=== PATIENT | male | born 1990 | race Caucasian/White ===

== ENCOUNTER 2019-06-24 00:40 | Emergency (ER) | payer OTHER ==
[2019-06-24] MEDS ORDERED: HALOPERIDOL 5 MG/ML VIAL (J1630) IM STA (00:41)
[2019-06-24] MEDS ORDERED: diphenhydrAMINE INJ 50MG/ML VIAL (J1200) IM STA (00:41)
[2019-06-24] MEDS ORDERED: HALOPERIDOL 5 MG/ML VIAL (J1630) IM ONE (00:45)
[2019-06-24] MEDS ORDERED: diphenhydrAMINE INJ 50MG/ML VIAL (J1200) IM ONE (00:45)
[2019-06-24 01:56] LABS: AMPHETAMINES LEVEL URINE NEGATIVE (NEGATIVE); BARBITURATES URINE NEGATIVE (NEGATIVE); BENZODIAZEPINES URINE NEGATIVE (NEGATIVE); CANNABINOIDS URINE NEGATIVE (NEGATIVE); COCAINE METABOLITE URINE NEGATIVE (NEGATIVE); METHADONE URINE NEGATIVE (NEGATIVE); OPIATES URINE NEGATIVE (NEGATIVE); PHENCYCLIDINE URINE NEGATIVE (NEGATIVE)
[2019-06-24 01:57] LABS: HEMOGLOBIN 15.2 g/dl (13.5-17.5); MEAN CORPUSCULAR HEMOGLOBIN 30.5 pg (27.0-33.0); MEAN CORPUSCULAR HGB CONC 33.8 g/dl (32.0-36.5); MEAN CORPUSCULAR VOLUME 90.4 fl (80.0-96.0); PLATELET COUNT, AUTOMATED 235 10^3/uL (150-450); RED BLOOD COUNT 4.98 10^6/uL (4.30-6.10); WHITE BLOOD COUNT 8.5 10^3/uL (4.0-10.0)
[2019-06-24 02:05] LABS: ACETAMINOPHEN LEVEL < 2.0 UG/ML (10.0-30.0); ALBUMIN 3.8 GM/DL (3.2-5.2); ALT/SGPT 27 U/L (12-78); BILIRUBIN,DIRECT < 0.1 MG/DL (0.0-0.2); BILIRUBIN,TOTAL 0.2 MG/DL (0.2-1.0); BLOOD UREA NITROGEN 15 MG/DL (7-18); CALCIUM LEVEL 8.5 MG/DL (8.5-10.1); CARBON DIOXIDE LEVEL 23 MEQ/L (21-32); CHLORIDE LEVEL 109 MEQ/L (98-107); CREATININE FOR GFR 1.27 MG/DL (0.70-1.30); ETHYL ALCOHOL (ETHANOL) 0.239 % (0.000-0.010); GLOMERULAR FILTRATION RATE > 60.0 (>60); GLUCOSE, FASTING 117 MG/DL (70-100); POTASSIUM SERUM 3.4 MEQ/L (3.5-5.1); SALICYLATE LEVEL < 1.7 MG/DL (5.0-30.0); SODIUM LEVEL 144 MEQ/L (136-145); TOTAL PROTEIN 7.2 GM/DL (6.4-8.2)
[2019-06-24 10:14] VITALS: BP 128/59
== END 2019-06-24 10:15 | disposition home or self-care (01) ==
LOC: M ED 00:40
DX: F91.9 Conduct disorder, unspecified (principal); F10.920 Alcohol use, unspecified with intoxication, uncomplicated
CPT/HCPCS: 36415; 80048; 80076; 80307; 84443; 85027; 96372; 99285; G0480; J1200; J1630

== ENCOUNTER 2019-10-13 22:19 | Emergency (ER) | payer OTHER ==
[~2019-10-13] VITALS: Ht 165.1 cm; Wt 85.8 kg
[2019-10-13] MEDS ORDERED: LIDOCAINE 2% MDV 20 ML VIAL As Ordered ONE (22:30)
[2019-10-13] MEDS ORDERED: LIDOCAINE 2% MDV 20 ML VIAL SC ONE (22:30)
[2019-10-13 22:53] VITALS: BP 106/77
== END 2019-10-13 23:19 | disposition home or self-care (01) ==
LOC: EDBD 22:19 → M ED 22:19
DX: S61.210A Laceration without foreign body of right index finger without damage to nail, initial encounter (principal); W25.XXXA Contact with sharp glass, initial encounter; Y92.018 Other place in single-family (private) house as the place of occurrence of the external cause

== ENCOUNTER 2021-04-03 21:56 | Emergency (ER) | payer OTHER ==
[~2021-04-03] VITALS: Ht 165.1 cm; Wt 82.5 kg
[2021-04-03 23:23] VITALS: BP 136/79
--- NOTE | 2021-04-04 00:04 | REPVR ---
PROCEDURE INFORMATION: Exam: XR Left Finger(s) Exam date and time: 04/03/2021 10:24 PM Age: 31 years old Clinical indication: Other: Crush injuty to ring finger; Additional info: Crush injury to ring finger TECHNIQUE: Imaging protocol: XR Left fingers. Views: Minimum 2 views. COMPARISON: No relevant prior studies available. FINDINGS: Bones/joints: No acute fracture. Normal osseous alignment. No osseous lesion. Joint spaces are maintained. Soft tissues: No soft tissue defect or foreign body. IMPRESSION: No acute fracture, osseous malalignment or obvious soft tissue injury Electronically signed by: Ariel Licona On 04/04/2021 00:03:41 AM
== END 2021-04-03 23:24 | disposition home or self-care (01) ==
LOC: M ED 21:56
DX: S60.945A Unspecified superficial injury of left ring finger, initial encounter (principal); S62.634A Displaced fracture of distal phalanx of right ring finger, initial encounter for closed fracture; W23.1XXA Caught, crushed, jammed, or pinched between stationary objects, initial encounter; Y99.0 Civilian activity done for income or pay; Y92.9 Unspecified place or not applicable; Y93.9 Activity, unspecified